=== PATIENT | male | born 1970 ===

== ENCOUNTER → 2021-06-27 08:00 | Outpatient (CLI) | payer OTHER ==
[~2021-06-27 08:00] MED LIST: SILDENAFIL20 MG PO; ZESTRIL40 M1 PO
== END | disposition home or self-care (01) ==
LOC: LAB 08:00 → ADM 09:00 → CIR.AMB 07-03 09:00 → EDSTATUS 07-03 09:00 → CIR.AMB 07-03 15:45
PROVIDERS: ATTEND Surgery
DX: N52.8 Other male erectile dysfunction (principal); Z03.818 Encounter for observation for suspected exposure to other biological agents ruled out